=== PATIENT | male | born 1995 | race Caucasian/White ===

== ENCOUNTER 2019-04-19 12:20 | Emergency (ER) | payer OTHER ==
[2019-04-19 12:28] VITALS: BP 115/55
[2019-04-19] MEDS ORDERED: DEXAMETHASONE SOD PHOS INJ 10 MG/1 ML VIAL IM ONE (12:38)
--- NOTE | 2019-04-19 12:52 | ER Document Report ---
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 He reports that on April 10 he started having canker sores. Female at his side reports that they were small blisters. He did follow-up with medical on April 14 where they did a strep test and diagnosed him with strep. He was placed on penicillin and Tylenol. He reports his throat is feeling little better but his sores on his mouth and on the left side of his tongue still hurt. He did go back to medical and they prescribed him what sounds like swish and swallow but he did not obtain the prescription. He reports he can barely drink soup. He reports he did have a fever April 14 but no fever recently. Denies vomiting diarrhea. Associated Symptoms: Sore throat Exacerbated by: Denies Relieved by: Denies Similar symptoms previously: Yes Recently seen / treated by doctor: Yes - REPRODUCTIVE Reproductive: DENIES: : Past Medical History - General Information source: Patient - Social History Smoking Status: Unknown if Ever Smoked Chew tobacco use (# tins/day): Yes Frequency of alcohol use: None Drug Abuse: None Occupation: [employer] – [place] Family History: None Patient has suicidal ideation: No Patient has homicidal ideation: No Pulmonary Medical History: Reports: Hx Asthma Past Surgical History: Reports: Hx Oral Surgery Vertical Provider Document - CONSTITUTIONAL Agree With Documented VS: Yes Exam Limitations: No Limitations General Appearance: WD/WN, No Apparent Distress - INFECTION CONTROL TRAVEL OUTSIDE OF THE [place] IN LAST 30 DAYS: No - HEENT HEENT: Atraumatic, Normocephalic, Pharyngeal Exudate, Pharyngeal Erythema - Tonsillar hypertrophy, good airway, clear voice, no trismus, no peritonsillar abscess. negative: Conjuctival Injection, Tympanic Membrane Red Mouth Diagram: 1 - scab noted, no drainage 2 - scab 3 - ulceration - NECK Neck: Normal Inspection, Supple. negative: Lymphadenopathy-Left, Lymphadenopathy-Right - RESPIRATORY Respiratory: Breath Sounds Normal, No Respiratory Distress - CARDIOVASCULAR Cardiovascular: Regular Rate - GI/ABDOMEN Gastrointestinal: Abdomen Soft - MUSCULOSKELETAL/EXTREMETIES Musculoskeletal/Extremeties: RAMÍREZ MENENDEZ - NEURO Level of Consciousness: Awake, Alert, Appropriate Motor/Sensory: No Motor Deficit - DERM Integumentary: Warm, Dry, No Rash Course - Re-evaluation Re-evalutation: 04/19/19 13:21 23-year-old male presents with complaints of mouth pain. Reports [place] He reports he also has sores to his lips in his mouth.Female at his side reports the lips has little blisters at first. Patient was treated for herpes simplex. Treated with acyclovir swish and spit. Steroid for tonsillar hypertrophy. He was advised to avoid spicy as any foods. He was also advised to follow-up with his BAS Sunday for re- evaluation. He verbalized understanding to all instructions. - Vital Signs Vital signs: Temp Pulse Resp BP Pulse Ox 99.0 F 71 16 115/55 L 99 04/19/19 12:27 04/19/19 12:27 04/19/19 12:27 04/19/19 12:27 04/19/19 12:27 Discharge - Discharge Clinical Impression: Painful mouth, Herpes simplex Disposition: HOME, SELF-CARE Instructions: Acyclovir ([facility]), Herpes Simplex ([facility]), Steroid Medication Injecti on Additional Instructions: *You have been evaluated for a sore throat, Herpes simplex *Take medication as prescribed, Viscous lidocaine swish and spit *Do not let anyone drink/eat after you *Good hand washing *Follow-up with your BAS Sunday for recheck *Return to ED for worsening condition change, needs Prescriptions: Acyclovir [Acyclovir 400 mg Tablet] 400 mg PO TID #30 tablet Lidocaine HCl [Xylocaine 2% Viscous Soln 20 ml Udcup] 5 ml PO TID #45 ml
== END 2019-04-19 13:00 | disposition home or self-care (01) ==
LOC: ER 12:20
DX: K13.79 Other lesions of oral mucosa (principal); B00.9 Herpesviral infection, unspecified
CPT/HCPCS: 96372; 99282; J1100